=== PATIENT | male | born 1990 ===

== ENCOUNTER 2024-07-24 19:08 | Emergency (ER) | payer SELFPAY ==
[2024-07-24 19:11] VITALS: BMI 25.2
--- NOTE | 2024-07-24 19:14 | EKG_ITS ---
[facility] Test Date: 2024-07-24 Pat Name: DIONNE STEINER Department: Room: - Gender: Male Bag Filler: : 1990 Requested By: ED Temporary Provider Order Number: [id number] Reading MD: ED Temporary Provider Measurements Intervals [place] Rate: 92 P: 46 HI: 116 QRS: 25 QRSD: 93 T: 101 QT: 421 QTc: 522 Interpretive Statements SINUS RHYTHM WITH SHORT HI INTERVAL POSSIBLE RIGHT VENTRICULAR CONDUCTION DELAY [RSR (QR) IN V1/V2] ABNORMAL QRS-T ANGLE [QRS-T AXIS DIFFERENCE > 60] PROLONGED QT INTERVAL No previous ECG available for comparison /[email or web address]/[id number]
[2024-07-24 19:18] VITALS: BP 106/64; PULSE 87; RESP 26; TEMP 36.8; O2SAT 99
--- NOTE | 2024-07-24 20:00 | PC.NURSE ---
pt is refusing to see provider.
--- NOTE | 2024-07-24 20:16 | PC.NURSE ---
Pt is yelling at security and staff
--- NOTE | 2024-07-24 21:30 | PC.NURSE ---
I WENT TO TALK TO PT AT OUTSIDE ER BUT SECURITY SAID PT GOT IN A CAR TO LEAVE ER.
== END 2024-07-24 21:45 | disposition left against medical advice (07) ==
LOC: SERX 21:44
PROVIDERS: Emergency Provider Emergency Medicine
DX: Z53.29 Procedure and treatment not carried out because of patient's decision for other reasons (principal); R94.31 Abnormal electrocardiogram [ECG] [EKG]
CPT/HCPCS: 99281